=== PATIENT | male | born 1965 | race Caucasian/White ===

== ENCOUNTER 2020-01-28 01:27 | Outpatient (CLI) | payer OTHER, SELFPAY ==
[2020-01-28 19:16] LABS: SARS-CoV-2 RNA PCR Negative
== END 2020-01-28 01:28 | disposition home or self-care (01) ==
LOC: ANHCOVIDDT 01:28
PROVIDERS: PCP Family Medicine; Visit Provider Plastic Surgery
DX: Z01.812 Encounter for preprocedural laboratory examination (principal); Z11.59 Encounter for screening for other viral diseases
CPT/HCPCS: 87635; C9803; U0003

== ENCOUNTER 2020-01-30 02:12 | Day surgery (SDC) | payer OTHER, SELFPAY ==
[2020-01-27 13:46] VITALS: BMI 26.6
--- NOTE | 2020-01-29 20:12 | HP_ITS ---
DATE OF SERVICE: 01/30/2020 PREOPERATIVE DIAGNOSIS: Dupuytren's contracture in the left hand. HISTORY: The patient is 54. He is a patient of Dr. Juanjose Wilson. 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 He was evaluated on January 26 for Dupuytren's contracture which has revealed in both hands, worse on the left where he has an 80-degree flexion contracture of the PIP joint of the left 5th digit. The MP joint is not contracted. He has pitting and nodules in the palm. We have discussed surgery for this with the possibility of injury to nerves, blood vessels, or skin. He understands there will be potential for some delayed healing with some open wounds that may linger several weeks. He understands we may not be able to fully extend the PIP joint.There is a potential for digital nerve injury with numbness. Regardless of the surgery that we do, he is hopeful for some improvement. In addition to the above, he also complains of some symptoms consistent with compression neuropathy. He has a history of left carpal tunnel release a year and a half ago elsewhere, but he says his hand did not improve following that surgery. We have a nerve conduction test pending. ALLERGIES: HE HAS NO KNOWN ALLERGIES TO MEDICATION. MEDICATIONS: He takes no chronic medications. PAST SURGICAL HISTORY: Prior surgery has only been a carpal tunnel release in March 2019. REVIEW OF SYSTEMS: Also reveals gastric reflux, history of peeling sunburns. FAMILY HISTORY: Noncontributory. SOCIAL HISTORY: He says he is a smoker. The patient says his current smoking habit comprises approximately one-fourth of a pack per day. He lives in [place]. He works for [employer]. LABORATORY DATA: Recent labs that we have include a cholesterol of 269 which is elevated, triglycerides 186 also elevated, HDL 41 and an LDL calculated at 191, which is high. 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 PHYSICAL EXAMINATION: GENERAL: He is 5 feet 7 inches, weighs 170 pounds. He is in no acute distress. HEENT: Unremarkable. CHEST: Clear to auscultation. HEART: Regular rate and rhythm by palpation. ABDOMEN: Soft, nontender. EXTREMITIES: Exam appears normal with the exception of the palms as described above with sharp acute PIP joint contracture of the left little finger and pits and nodules in the palm. ASSESSMENT: Left small finger Dupuytren's contracture. PLAN: Left partial palmar fasciectomy under MAC anesthetic. D I MT: Obed MENDES
--- NOTE | 2020-01-30 07:11 | ECG_ITS ---
Measurements Intervals [place] Rate: 76 P: 65 NM: 178 QRS: 48 QRSD: 85 T: 45 QT: 378 QTc: 426 Interpretive Statements SINUS RHYTHM NORMAL ECG Electronically Signed On 01-30-2020 7:40:07 CDT by Julio C Padilla D.O.
[2020-01-30] MEDS: LACTATED RINGERS 1,000 ML 30 ML IV CONT ×2 (07:40→10:26)
[2020-01-30 07:42] VITALS: BP 131/70; PULSE 77; RESP 16; TEMP 36.4; O2SAT 97
--- NOTE | 2020-01-30 07:59 | WPDANESEPPF ---
Anes - Initial Pre Proc Eval Procedure: Operation Date: 01/30/20 08:15 Proposed Procedures p Left Partial Palmar Fasciectomy - Jeremiah Davis MD Date/Time: 01/30/20 07:59 Surgeon: Jeremiah Davis MD Pre Op Diagnosis: Left Dupuytren's Contracture Patient Data Age: 54 Gender: M Height: 5 ft 7 in Weight: 73.6 kg Last Vital Signs Temp 36.4 C 01/30/20 07:42 Pulse 77 01/30/20 07:42 Resp 16 01/30/20 07:42 BP 131/70 01/30/20 07:42 Pulse Ox 97 01/30/20 07:42 Allergies Allergy/AdvReac Type Severity Reaction Status Date / Time No Known Allergies Allergy Verified 01/30/20 07:06 Home Medications Medication Instructions Recorded Confirmed Type atorvastatin 80 mg PO HS 01/27/20 01/30/20 History Patient hx anesthesia problems: none Family hx anesthesia problems: none PMFSH Past Medical History Medical History Hyperlipidemia Tobacco abuse Family History Family History Mother Patient's mother is in good health Family history of osteoarthritis Family history of kidney disease Father Patient's father is in good health Sibling Patient's sister is in good health Patient's brother is in good health Social History Social History Smoking packs per day: 1 Smoking cigarettes per day: 20.0 Years smoked: 40 Smoking pack-years: 40.00 Smoking status: Current every day smoker Tobacco type: cigarettes Smoking end date: 07/24/10 Alcohol intake: current Drinks per week: 12 Spiritual care concerns: No Anes - Eval Final PreProcedure Day of Procedure 01/30/20 07:59 Patient weight: normal Heart: regular rate and rhythm Lungs: decreased breath sounds Airway: Mallampati scale class II Neurological: alert and oriented Last oral intake: >/= 8 hours ASA classification: III Emergent: no Anesthetic plan: proceed Anesthesia type and monitoring: general LMA and standard monitoring Informed Consent: The patient's anesthetic plan and its attendant risks and benefits were discussed with the patient/family/POA. Questions were solicited and answers provided to the satisfaction of the patient/family/POA.
--- NOTE | 2020-01-30 08:12 | WPDHPUPDATE1 ---
History and Physical Update Update Date/Time: 01/30/20 08:12 History and Physical has been reviewed, including an updated exam of the patient. There are NO changes in the patient's condition. Risks, benefits, and alternatives have been discussed and questions answered. Patient agrees to proceed with procedure.
[2020-01-30] MEDS: ceFAZolin SODIUM 1 GM VIAL 2 GM IV PUSH (08:34)
[2020-01-30] MEDS: LIDO 1%/EPINEPHRINE 1:100,000 20 ML VIAL 10 ML INFILTRATE (08:43)
[2020-01-30] MEDS: BACITRACIN OINTMENT 15 GM TUBE 1 APPLIC TOPICAL (08:44)
[2020-01-30 10:26] VITALS: BP 123/67; PULSE 82; RESP 16; O2SAT 93
[2020-01-30 10:45] VITALS: BP 122/65; PULSE 83; RESP 12
--- NOTE | 2020-01-30 10:48 | PM.OP ---
Procedure Note - Brief Procedure Note - Brief Date of procedure: 01/30/20 Pre-op diagnosis: Left Dupuytren's Contracture Post-op diagnosis: same Procedure performed: Partial palmar fasciectomy for Dupuytren's disease of the left hand and little finger Anesthesia: GISELL Surgeon: Jeremiah Davis MD Street Light Repairer Helper: Calista Barnes Estimated blood loss (mL): 5 Tourniquet time (min): 80 Drains: No Pathology: none sent Complications: No immediate complications Condition: stable Disposition: same day
[2020-01-30 11:15] VITALS: BP 135/73; PULSE 80; RESP 12
[2020-01-30 11:30] VITALS: BP 130/70; PULSE 82; RESP 14
--- NOTE | 2020-01-30 15:15 | PM.PROC ---
Procedure Note - Detailed Date of procedure: 01/30/20 Pre-op diagnosis: Left Dupuytren's Contracture Post-op diagnosis: same Procedure performed: Partial palmar fasciectomy of the left hand and little finger for Dupuytren's disease Description of procedure: In the holding area the hand patient's hand was marked for appropriate site. He was taken to the operating room where he was placed supine on the operating table. A time-out was held and confirmed. He was given IV sedation and the extremity was prepped and draped in the usual fashion. The patient had received 2 g of Ancef preop. The hand was carefully examined for placement of access incisions. There was minimal metacarpophalangeal joint flexion but an acute angle at the proximal interphalangeal joint on the little finger. There were cords in the palm and these extended toward the metacarpophalangeal joint of the ring finger. There was no significant ring finger contracture. Course were thick along the ulnar border of the little finger metacarpophalangeal joint. Markings were made for a transverse incision in the ulnar palm and a dog leg and midline palmar incision on the small finger. These areas were infiltrated with 1% lidocaine with epinephrine. The tourniquet was inflated to 250 mmHg. The transverse incision was made in the ulnar palm and the skin flaps carefully elevated fairly thinly in both directions from that. We were able to identify a thick palmar cord and that was dissected and removed. The finger was then opened down the midline as marked with a dog leg to the ulnar side. This allowed removal of the distal palmar cords which were quite thick. The skin flaps were carefully elevated on the finger. We did not encounter any spiral cords. The pretendinous cord however was extremely thick the neurovascular bundles were identified distally and dissection was carried proximally taking that mass off the flexor tendon sheath as we went. When that was removed the finger could lie in full extension. The ulnar side of the metacarpophalangeal joint was also freed of all contracted tissue . The wound was irrigated copiously with saline. The tourniquet was released and then pressure was held for a couple of minutes. The wound was closed with the use of a single Z-plasty near the proximal interphalangeal joint of the small finger. All suturing was done with a 5 0 nylon suture on PS 2 needle. A bulky gauze bandage was applied with no splint. No additional anesthetic was infiltrated. The patient is discharged with instructions in wound care and follow-up has a prescription for hydrocodone/APAP . Surgeon: Jeremiah Davis MD
== END 2020-01-30 11:37 | disposition home or self-care (01) ==
PROVIDERS: PCP Family Medicine; Visit Provider Plastic Surgery
PROC: (CPT 26045; principal; 2020-01-30 08:15)
DX: M72.0 Palmar fascial fibromatosis [Dupuytren] (principal); E78.5 Hyperlipidemia, unspecified; F17.210 Nicotine dependence, cigarettes, uncomplicated
CPT/HCPCS: 26123; 93005; A9270; J0131; J0690; J2250; J2405; J2704; J3010; J7120

== ENCOUNTER 2020-03-19 10:10 | Outpatient (CLI) | payer OTHER, SELFPAY ==
--- NOTE | 2020-03-19 11:00 | NEURO_ITS ---
Patient Number: [id number] Impression: # Complains of tingling of left hand. # Status post dupuytren?s contracture surgery. # Normal nerve conduction study. # Needle/EMG exam not requested. # Clinical correlation recommended. Nerve Conduction Studies Anti Sensory Summary Table Stim Site NR Peak (ms) P-T Amp (?V) Site1 Site2 Delta-P (ms) Dist (cm) Tre (m/s) Left Median Anti Sensory (2-3nd Digit) Wrist 2.7 50.0 Wrist 2-3nd Digit 2.7 14.0 52 Wrist 2.8 26.0 Wrist 2-3nd Digit 2.7 14.0 52 Left Radial Anti Sensory (Base 1st Digit) Wrist 1.7 44.4 Wrist Base 1st Digit 1.7 0.0 Left Ulnar Anti Sensory (5th Digit) Wrist 2.5 28.0 Wrist 5th Digit 2.5 14.0 56 Motor Summary Table Stim Site NR Onset (ms) O-P Amp (mV) Site1 Site2 Delta-0 (ms) Dist (cm) Tre (m/s) Left Median Motor (Abd Poll Brev) Wrist 3.1 1.8 Elbow Wrist 5.0 27.0 54 Elbow 8.1 4.6 Left Ulnar Motor (Abd Dig Minimi) Wrist 2.4 5.6 A Elbow Wrist 4.7 28.0 60 A Elbow 7.1 4.8 B Elbow Wrist 11.4 0.0 B Elbow 13.8 0.0 F Wave Studies NR F-Lat (ms) L-R F-Lat (ms) Left Median (Mrkrs) (Abd Poll Brev) 27.27 Left Ulnar (Mrkrs) (Abd Dig Min) 27.95 MTDD
== END 2020-03-19 10:11 | disposition home or self-care (01) ==
PROVIDERS: PCP Family Medicine; Visit Provider Plastic Surgery
DX: R20.2 Paresthesia of skin (principal); Z98.890 Other specified postprocedural states
CPT/HCPCS: 95909

== ENCOUNTER → 2020-05-01 10:23 | Outpatient (CLI) | payer OTHER, SELFPAY ==
--- NOTE | ~2020-05-01 | XR_ITS ---
XR cervical spine 4-5V DATE: 05/01/2020 10:42 INDICATION: Neck pain, radiculopathy TECHNIQUE: Standing AP, open-mouth, odontoid, lateral and swimmer views COMPARISON: None FINDINGS: C1 and C2 are normally aligned and the odontoid process is intact. No fracture or dislocati on or locked facet or prevertebral soft tissue swelling. There is moderately severe loss of disc space height and moderate spurring at C5-6, consistent with d egenerative disc disease. There is prominent uncovertebral joint spurring at C5-6 as well. IMPRESSION: Moderately severe degenerative disc disease and prominent uncovertebral joint spurring at C5-6 Reviewed, dictated and finalized at location A. IMPRESSION: Moderately severe degenerative disc disease and prominent uncoverte bral joint spurring at C5-6
== END ==
PROVIDERS: Visit Provider Plastic Surgery
DX: M47.22 Other spondylosis with radiculopathy, cervical region (principal); M50.322 Other cervical disc degeneration at C5-C6 level
CPT/HCPCS: 72050

== ENCOUNTER 2020-05-07 07:30 | Outpatient (RCR) | payer OTHER, SELFPAY ==
--- NOTE | 2020-04-08 09:31 | OTOPEVAL ---
OCCUPATIONAL THERAPY EVALUATION REPORT 04/08/2020 Thank you for referring Grace Mae to [facility].? The patient is scheduled to be seen for therapy? 2x/week for 4 weeks. Please review, sign, date and return this plan of care CHRISTIANO. I agree with and certify that the following plan of care is medically necessary. Referring Physician Date Referring Provider: Jeremiah Davis MD OT Evaluation Outpatient Past Medical History Neurological History Hx Neurological Disorders No Significant History Cardiovascular History Hx Hypercholesterolemia Yes Respiratory History Hx Respiratory Disorders No Significant History Gastrointestinal History Hx Gastrointestinal Disorders No Significant History Genitourinary History Hx Genitourinary Disorders No Significant History Musculoskeletal History Hx Other Musculoskeletal Disorders Yes: LT CTR, LT DUPUYTREN'S CONTRACTURE Hematological History Hx Hematological Disorders No Significant History Endocrine History Hx Endocrine Disorders No Significant History HEENT History Hx HEENT Disorders No Significant History Integumentary History Hx Skin Disorders No Significant History Reproductive History Hx Reproductive Disorders No Significant History Psychosocial History Hx Psychiatric Disorders No Significant History Pain History History of Any Previous or Ongoing No Significant History Instance of Pain Anesthesia History Hx Anesthesia Reactions No Significant History Evaluation Information Problem Diagnosis s/p Dupuytren's contracture release with partial fasciectomy Onset 01/30/20 Subjective Information Patient reports having scar Query Text:As Reported By Patient/ tissue on the palm of his left Family hand and palmar surface of the pinky which is sensitive and restricting is ability to make a fist. 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 He states work tasks are difficult and he is driving with the right hand only. Using the left hand for work tasks is still guarded. Pain Assessment Timing of Pain Assessment Timing of Pain Assessment Assessment Pain Scale Pain Scale Used Numeric (1 - 10) Self Report Pain Assessment Left Hand(s) Reported Pain Level 0
--- NOTE | 2020-05-04 08:14 | PCOTNOTE ---
Pt called and canceled 8:00am OT appointment, will schedule new appointment
--- NOTE | 2020-05-07 08:06 | OTOPEVAL ---
OCCUPATIONAL THERAPY RE-EVALUATION AND D/C 05/07/2020 Thank you for referring Grace Mae to [facility] [place].? The patient has made some progress with AROM of the left hand. He continues to have restrictions due to strength and hypersensitivity, however he reports he will continue to work on these with his home exercises. Discharging today with patient independent with HEP. Please review, sign, date and return this D/C CHRISTIANO. I agree with and certify that the following plan of care is medically necessary. Referring Physician Date Admitting Provider: Attending Provider: Jeremiah Davis MD Referring Provider: *OT Outpatient Re-Evaluation Evaluation Information Problem Diagnosis s/p Dupuytren's contracture release with partial fasciectomy Onset 01/30/20 Additional Evaluation Detail Grace has been participating in outpatient OT since and has attended 7 treatment sessions. Treatments have been focusing on the use of modalities, scar mobilization, AROM/PROM, and strengthening to facilitate optimal functional use of the left hand. Subjective Information Patient reports that since Query Text:As Reported By Patient/ beginning therapy his pain has Family reduced significantly. He states No matter what I do, when I wake up the next morning, its the same. He feels as though the soft tissue mass in his palm is restricting his ability to fully make a fist. He states that therapy has helped, but he is ready to be discharged to do his HEP on his own. He also notes that he follows up with MD tomorrow. Pain Assessment Timing of Pain Assessment Timing of Pain Assessment Re-assessment Pain Scale Pain Scale Used Numeric (1 - 10) Self Report Pain Assessment Left Hand(s) Reported Pain Level 3 Pain Description Aching,Dull Lowest Pain Intensity 3 Greatest Pain Intensity 3 Pain Score Pain Score 3: Self Report Upper Extremity Range of Motion Finger Range of Motion Left Little Finger MCP Joint Flexion - Active 80 Little Finger PIP Joint Flexion - Active 85 Little Finger PIP Joint Extension - -25 Active Little Finger DIP Joint Flexion - Active 75 Little Finger DIP Joint Extension
--- NOTE | 2020-08-18 12:45 | PCOTNOTE ---
Forgot to charge paraffin bath procedure on 04/27/2020, billing office is notified.
== END 2020-05-07 10:39 | disposition home or self-care (01) ==
LOC: ANHOT 07:30
PROVIDERS: PCP Family Medicine; Visit Provider Plastic Surgery
DX: Z48.89 Encounter for other specified surgical aftercare (principal)
CPT/HCPCS: 97018; 97035; 97110; 97140; 97165

== ENCOUNTER 2021-03-12 13:37 | Outpatient (CLI) | payer OTHER, SELFPAY ==
--- NOTE | 2021-03-12 13:47 | ECG_ITS ---
Measurements Intervals [place] Rate: 92 P: 59 TN: 160 QRS: 52 QRSD: 85 T: 54 QT: 349 QTc: 433 Interpretive Statements SINUS RHYTHM NORMAL ECG Electronically Signed On 03-12-2021 14:00:06 CDT by Julio C Padilla D.O.
== END 2021-03-12 13:38 | disposition home or self-care (01) ==
LOC: ANHCARD 13:40
PROVIDERS: Visit Provider Anesthesiology
DX: Z01.810 Encounter for preprocedural cardiovascular examination (principal); E78.5 Hyperlipidemia, unspecified
CPT/HCPCS: 93005

== ENCOUNTER → 2021-03-13 01:34 | Outpatient (CLI) | payer OTHER, SELFPAY ==
[2021-03-14 01:36] LABS: SARS-CoV-2 RNA PCR Negative
== END ==
PROVIDERS: Visit Provider Orthopaedic Surgery
DX: Z01.812 Encounter for preprocedural laboratory examination (principal); Z20.822 Contact with and (suspected) exposure to COVID-19
CPT/HCPCS: C9803; U0003; U0005

== ENCOUNTER 2021-03-17 01:10 | Day surgery (SDC) | payer OTHER, SELFPAY ==
[2021-03-12 13:41] VITALS: BMI 26.6
--- NOTE | 2021-03-15 13:04 | PM.IMHP ---
H&P: HPI History of Present Illness Date/Time: 03/15/21 13:04 the patient is a 55-year-old male who presents with left shoulder pain ongoing and chronic in nature. He reports weakness and pain with overhead motion. The pain radiates into his upper arm is even present at rest if he has a busy day. The patient has limitation of his daily activities due to his chronic and worsening left shoulder pain. Patient had previously been treated for adhesive capsulitis he made good strides with motion with physical therapy and cortisone. He has recovered his motion however he continues to have pain and weakness with almost any activity. An MRI scan of the left shoulder now reveals a fairly large rotator cuff tendon tear the MRI scan shows AC joint hypertrophy with type 2 acromion and moderate subacromial outlet narrowing. The patient also has a 2.2 cm full-thickness tear of the supraspinatus tendon there is supraspinatus muscle atrophy as well. This infraspinatus and subscapularis tendons appear to be intact. Bicipital labral complex is also grossly intact. at this point the patient is aware the above findings, he has failed conservative measures. The patient is aware has a large rotator cuff tendon tear which could have advanced since his MRI scan done at the end of December if it has become significantly larger repair may not be possible. Patient has discussed further treatment options in detail with Dr. Nelson he would now like to proceed with surgical intervention for his left shoulder. Chief Complaint: Left shoulder pain due to AC joint arthrosis, impingement, large rotator cuff tendon tear Review of Systems Review of Systems: All systems reviewed & are unremarkable except as noted in HPI and below PMFSH Past Medical History Medical History Hyperlipidemia Tobacco abuse Family History Family History Mother Patient's mother is in good health Family history of osteoarthritis Family history of kidney disease Father Patient's father is in good health Sibling Patient's sister is in good health Patient's brother is in good health Social History Social History Smoking packs per day: 1 Smoking cigarettes per day: 20.0 Years smoked: 41 Smoking pack-years: 41.00 Smoking status: Current every day smoker Tobacco type: cigarettes Second hand tobacco smoke exposure: Yes Smoking end date: 07/24/10 Alcohol intake: current Drinks per week: 12 Substance use: never Substance use type: does not use Spiritual care concerns: No Meds Home Medications and Allergies Home Medications Medication Instructions Recorded Confirmed Type atorvastatin 80 mg PO HS 01/27/20 03/12/21 History omeprazole 20 mg DAILY 03/12/21 03/12/21 History Allergies Allergy/AdvReac Type Severity Reaction Status Date / Time No Known Allergies Allergy Verified 03/12/21 13:21 Exam Narrative: On exam the patient is noted be a well-developed well-nourished male no acute distress alert oriented x3. Normal mood and affect. Hearing and vision are intact. Respiratory is good no distress. Pulse regular rate rhythm. Abdomen benign. Extremities showed the patient's left shoulder to be painful with manipulation and range of motion. The patient has full active and passive motion now but pain with extremes of motion. He has a positive impingement sign. Rotator cuff strength testing reproduces his symptoms, the patient is also noted have pain with external rotation and abduction of the left shoulder. Shoulder joint is otherwise stable. The patient has full painless neck motion. Neurovascular is intact. Skin is intact. Central nervous system exam within normal limits. MRI scan is as above. Assessment and Plan Additional Plan By MRI and exam the patient is noted to have impingement w
--- NOTE | 2021-03-16 13:52 | WPDANESEPPF ---
Anes - Initial Pre Proc Eval Procedure: Operation Date: 03/17/21 07:30 Proposed Procedures p Left Shoulder Arthroscopy, Acromioplasty, Open Distal Clavicle Excision, Rotator Cuff Repair, Proceed as Indicated - Marco Antonio Nelson MD Date/Time: 03/16/21 13:52 Surgeon: Marco Antonio Nelson MD Pre Op Diagnosis: left rotator cuff tear Patient Data Age: 55 Gender: M Height: 1.7 m Weight: 77.27 kg Allergies Allergy/AdvReac Type Severity Reaction Status Date / Time No Known Allergies Allergy Verified 03/17/21 06:47 Home Medications Medication Instructions Recorded Confirmed Type atorvastatin 80 mg PO HS 01/27/20 03/12/21 History omeprazole 20 mg DAILY 03/12/21 03/12/21 History ECG: Date of Service: 03/12/21 Procedure(s): CA 12 lead EKG Accession Number(s): [id number] cc: ~ Measurements Intervals [place] Rate: 92 P: 59 MS: 160 QRS: 52 QRSD: 85 T: 54 QT: 349 QTc: 433 Interpretive Statements SINUS RHYTHM NORMAL ECG Electronically Signed On 03-12-2021 14:00:06 CDT by Julio C Padilla D.O. Patient hx anesthesia problems: none Family hx anesthesia problems: none PMFSH Past Medical History Medical History (Updated 03/16/21 @ 13:52 by Kamran Gonsales MD) Hyperlipidemia Overweight (BMI 25.0-29.9) Tobacco abuse Family History Family History Mother Patient's mother is in good health Family history of osteoarthritis Family history of kidney disease Father Patient's father is in good health Sibling Patient's sister is in good health Patient's brother is in good health Social History Social History Smoking packs per day: 1 Smoking cigarettes per day: 20.0 Years smoked: 41 Smoking pack-years: 41.00 Smoking status: Current every day smoker Tobacco type: cigarettes Second hand tobacco smoke exposure: Yes Smoking end date: 07/24/10 Alcohol intake: current Drinks per week: 12 Substance use: never Substance use type: does not use Living arrangements: with family Spiritual care concerns: No Anes - Eval Final PreProcedure Day of Procedure 03/16/21 13:52 Patient weight: overweight Heart: regular rate and rhythm Lungs: clear to auscultation and normal air movement Airway: Mallampati scale class II Neurological: alert and oriented Last oral intake: >/= 8 hours ASA classification: II Emergent: no Anesthetic plan: proceed Anesthesia type and monitoring: general ETT Informed Consent: The patient's anesthetic plan and its attendant risks and benefits were discussed with the patient/family/POA. Questions were solicited and answers provided to the satisfaction of the patient/family/POA.
[2021-03-17] VITALS (8 sets, daily range): BP systolic 131–142; BP diastolic 65–88; PULSE 92–107; RESP 14–19; TEMP 36.2–36.9; O2SAT 95–100; BMI 27.9
[2021-03-17] MEDS: LACTATED RINGERS 1,000 ML 30 ML IV CONT (07:00)
[2021-03-17] MEDS: ACETAMINOPHEN 500 MG TABLET 1000 MG PO (07:04)
[2021-03-17] MEDS: KETOROLAC 15 MG/ML VIAL (*BKC) IV PUSH (07:05)
--- NOTE | 2021-03-17 07:10 | WPDANESPNB ---
Anes - Peripheral Nerve Block Date/Time: 03/17/21 07:10 I have discussed with the patient/family/POA the placement of a peripheral nerve block for post-operative pain management, including associated risks, benefits, complications, and side effects. Alternative methods of post-operative analgesia were detailed. Questions were solicited and answers provided to the satisfaction of the patient/family/POA. Time-Out: A pre-procedural Time-Out was completed immediately before starting the procedure and confirmed: Patient Identification, Site, Procedure, Patient Position and the Availability of Requisite Equipment. Clinical Indications: Acute post-operative pain management requested by the operative surgeon. Nerve Block Insertion Note Anes-nerve block: supraclavicular left Patient position: supine Skin prep: chlorhexidine Needle: 22 gauge, stimulating, insulated echogenic needle. Needle length: 80 mm Technique: ultrasound (in plane) Injectate: bupivacaine 0.5% with epi 5 mcg/ml (20cc) Observations: tolerated well Complications: none Procedure start time:: 725 Procedure end time:: 730
--- NOTE | 2021-03-17 07:12 | WPDHPUPDATE1 ---
History and Physical Update Update Date/Time: 03/17/21 07:12 History and Physical has been reviewed, including an updated exam of the patient. There are NO changes in the patient's condition. Risks, benefits, and alternatives have been discussed and questions answered. Patient agrees to proceed with procedure.
[2021-03-17] MEDS: ceFAZolin 2 GM/D5W 50 ML 2 GM/50 ML BAG IVPB (07:37)
[2021-03-17] MEDS: LIDO 1%/EPINEPHRINE 1:100,000 10 ML VIAL 30 ML INFILTRATE (08:20)
--- NOTE | 2021-03-17 08:44 | P.OP_ITS ---
Procedure Note - Detailed Date of Procedure 03/17/21 Pre-op Diagnosis left rotator cuff tear Post-op Diagnosis same Procedure Performed Rotator cuff repair, distal clavicle excision Surgeon Marco Antonio Nelson MD Flight Operations Manager Trevor Jaramillo Anesthesia general Description of Procedure Arthroscopy shoulder with acromioplasty open distal clavicle exicision. Rotator cuff debridement and repair. Estimated Blood Loss 50 Drains No Packing No Pathology none sent Complications No immediate complications Condition stable Disposition PACU
--- NOTE | 2021-03-17 08:47 | W.PM.PROC2 ---
Procedure Note - Detailed Date of Procedure 03/17/21 Pre-op Diagnosis left rotator cuff tear Post-op Diagnosis same Procedure Performed [side] carpal tunnel release Surgeon Marco Antonio Nelson MD Anesthesia MAC Description of Procedure After sterile prep and drape, I injected the area of intended incision with 10ml of 1% lidocaine. A longitudinal incision was made in line with the ulnar boarder of the third finger. Disection carried down to the fascia, the fascia split and the carpal ligament identified. The carpal ligament was released and the flexor retinaculum was released as well. The nerve was noted to be red purple in color and in continuity. The wound was irrigated, hemostatis was obtained and closed with 3-0 prolene. Estimated Blood Loss 50 Drains No Packing No Pathology none sent Complications No immediate complications Condition stable Disposition same day
--- NOTE | 2021-03-17 08:48 | P.OP_ITS ---
Procedure Note - Detailed Date of Procedure 03/17/21 Pre-op Diagnosis left rotator cuff tear Post-op Diagnosis same Procedure Performed Rotator cuff repair, distal clavicle excision Surgeon Marco Antonio Nelson MD [employer] Director Trevor Jaramillo Anesthesia general Description of Procedure Arthroscopy shoulder with acromioplasty open distal clavicle exicision. Rotator cuff debridement and repair. Patient brought to operating room 7. General anesthetic administered placed on the operating table and sterilely prepped and draped in usual manner supra standard arthroscopic portal was made lateral and posterior and arthroscopy begun he had fraying of the labrum but not bad massive tear was seen biceps tendon intact I went subacromial space again the acromioplasty and this was performed with shaver I then longitudinal incision made from the AC joint distally dissection carried down the fascia distal clavicle excision performed the edges beveled and then proceeded over the tip of the acromion and rotator cuff tear was found fairly significant tear quarter-sized most supraspinatus and subscapularis is the greater tuberosity burred mm the supraspinatus the subscapularis hole or tied down with 2. Ethibond to close this gave a nice repair this point full motion was achieved distal clavicle gently rest then closed with the deltoid repaired to itself the acromion trapezius skin was closed with 2-0 Vicryl and payal I Estimated Blood Loss 50 Drains No Packing No Pathology none sent Complications No immediate complications Condition stable Disposition PACU
--- NOTE | 2021-03-17 10:32 | SUR.PHASEII ---
RN contacted Dr. Nelson's office for clarification on discharge instructions.
== END 2021-03-17 10:53 | disposition home or self-care (01) ==
PROVIDERS: Visit Provider Orthopaedic Surgery
PROC: (CPT 29805; principal; 2021-03-17 07:30)
DX: M75.122 Complete rotator cuff tear or rupture of left shoulder, not specified as traumatic (principal); M75.42 Impingement syndrome of left shoulder; M19.012 Primary osteoarthritis, left shoulder; M24.112 Other articular cartilage disorders, left shoulder; G89.18 Other acute postprocedural pain; E78.5 Hyperlipidemia, unspecified; E66.3 Overweight; Z68.26 Body mass index [BMI] 26.0-26.9, adult; F17.210 Nicotine dependence, cigarettes, uncomplicated; Z79.899 Other long term (current) drug therapy
CPT/HCPCS: 64415; 23412; 23120; 93005; A4565; A9270; C9803; J0330; J0690; J1100; J1885; J2250; J2405; J2704; J2710; J3010; J7120; U0003; U0005

== ENCOUNTER 2023-12-13 11:11 | Outpatient (CLI) | payer OTHER, SELFPAY ==
[2023-12-13 11:57] LABS: Basophils Absolute Auto 0.1 K/mm3 (0.0-0.1); Basophils Percent Auto 0.9 % (0.2-1.2); Eosinophils Absolute Auto 0.2 K/mm3 (0-0.3); Eosinophils Percent Auto 3.1 % (0-4.4); Hematocrit 49.4 % (42.0-52.0); Hemoglobin 16.4 g/dL (14.0-18.0); Immature Granulocyte Absolute 0.04 K/mm3 (0.00-0.031); Immature Granulocyte Percent A 0.5 % (0-0.5); Lymphocytes Absolute Auto 2.07 K/mm3 (0.9-3.2); Lymphocytes Percent Auto 27.8 % (18.3-44.2); Mean Corpuscular HGB Conc 33.2 g/dl (32-36); Mean Corpuscular Hemoglobin 30.5 pg (26-34); Mean Platelet Volume 10.7 fl (7.4-10.4); Monocytes Absolute Auto 0.7 K/mm3 (0.1-0.6); Monocytes Percent Auto 9.8 % (2.6-8.5); Neutrophils Absolute Auto 4.3 K/mm3 (1.3-6.7); Neutrophils Percent Auto 57.9 % (45.5-73.1); Platelet Count Result 174 k/mm3 (150-375); Red Blood Count 5.37 M/mm3 (4.6-6.20); Red Cell Distribution Width 14.2 % (11.5-14.5); White Blood Count 7.5 K/mm3 (4.5-10.0)
[2023-12-13 12:09] LABS: Alanine Aminotransferase 26 U/L (6-50); Albumin Level 4.6 g/dL (3.5-5.1); Alkaline Phosphatase 61 U/L (38-126); Anion Gap 8 mmol/L (4-12); Aspartate Amino Transferase 21 U/L (17-59); Bilirubin,Total 0.6 mg/dL (0.2-1.3); Blood Urea Nitrogen 13 mg/dL (9-20); Calcium 9.3 mg/dL (8.4-10.2); Carbon Dioxide 24 mmol/L (22-30); Chloride 109 mmol/L (98-107); Cholesterol 260 mg/dL (0-200); Estimated Glomerular Filt Rate > 60; Glucose 99 mg/dL (65-110); HDL Direct 45 mg/dL; Potassium 4.9 mmol/L (3.4-5.0); Sodium 141 mmol/L (137-145); Triglycerides 176 mg/dL (<150)
[2023-12-13 12:20] LABS: LDL Cholesterol Direct 170 mg/dL
[2023-12-13 12:35] LABS: Prostate Specific Antigen 1.3 ng/mL (< OR = 4.0)
== END 2023-12-13 11:12 | disposition home or self-care (01) ==
LOC: ANHLAB 11:13
PROVIDERS: PCP Nurse Practitioner Family; Visit Provider Nurse Practitioner Family
DX: Z12.5 Encounter for screening for malignant neoplasm of prostate (principal); E78.5 Hyperlipidemia, unspecified; I10 Essential (primary) hypertension
CPT/HCPCS: 36415; 80053; 80061; 84153; 84443; 85025; G0103

== ENCOUNTER 2024-01-30 09:09 | Outpatient (CLI) | payer OTHER, SELFPAY ==
--- NOTE | 2024-01-30 11:30 | NEURO_ITS ---
Impression: # Complains of flexion contracture of fingers.. Non-Diabetic. # Left ulnar neuropathy across the elbow. # No Carpal Tunnel Syndrome. # Normal needle/EMG exam. Nerve Conduction Studies Anti Sensory Summary Table Stim Site NR Peak (ms) P-T Amp (?V) Site1 Site2 Delta-P (ms) Dist (cm) Tre (m/s) Left Median Anti Sensory (2-3nd Digit) Wrist 2.8 33.7 Wrist 2-3nd Digit 2.8 14.0 50 Wrist 2.9 43.9 Wrist 2-3nd Digit 2.8 14.0 50 Right Median Anti Sensory (2-3nd Digit) Wrist 2.8 66.0 Wrist 2-3nd Digit 2.8 14.0 50 Wrist 2.7 75.9 Wrist 2-3nd Digit 2.8 14.0 50 Left Radial Anti Sensory (Base 1st Digit) Wrist 1.8 22.9 Wrist Base 1st Digit 1.8 0.0 Right Radial Anti Sensory (Base 1st Digit) Wrist 2.4 49.7 Wrist Base 1st Digit 2.4 0.0 Left Ulnar Anti Sensory (5th Digit) Wrist 2.6 43.2 Wrist 5th Digit 2.6 14.0 54 Right Ulnar Anti Sensory (5th Digit) Wrist 2.4 34.5 Wrist 5th Digit 2.4 14.0 58 Motor Summary Table Stim Site NR Onset (ms) O-P Amp (mV) Site1 Site2 Delta-0 (ms) Dist (cm) Tre (m/s) Left Median Motor (Abd Poll Brev) Wrist 3.2 2.7 Elbow Wrist 5.1 29.0 57 Elbow 8.3 6.9 Right Median Motor (Abd Poll Brev) Wrist 2.8 2.7 Elbow Wrist 5.2 29.0 56 Elbow 8.0 4.4 Left Ulnar Motor (Abd Dig Minimi) Wrist 2.2 6.6 A Elbow Wrist 5.5 27.0 49 A Elbow 7.7 6.4 B Elbow Wrist 3.7 21.0 57 B Elbow 5.9 6.2 Right Ulnar Motor (Abd Dig Minimi) Wrist 2.6 7.7 A Elbow Wrist 4.9 28.0 57 A Elbow 7.5 7.9 F Wave Studies NR F-Lat (ms) L-R F-Lat (ms) Left Median (Mrkrs) (Abd Poll Brev) 27.79 0.12 Right Median (Mrkrs) (Abd Poll Brev) 27.92 0.12 Left Ulnar (Mrkrs) (Abd Dig Min) 28.30 0.45 Right Ulnar (Mrkrs) (Abd Dig Min) 27.85 0.45 EMG Side Muscle Nerve Root Ins Act Fibs Amp Dur Recrt Comment Right 1stDorInt Ulnar C8-T1 Nml Nml Nml Nml Nml Right Ext Indicis Radial (Post Int) C7-8 Nml Nml Nml Nml Nml Right Ext Digitorum Radial (Post Int) C7-8 Nml Nml Nml Nml Nml Right BrachioRad Radial C5-6 Nml Nml Nml Nml Nml Right PronatorTeres Median C6-7 Nml Nml Nml Nml Nml Right Abd Poll Brev Median C8-T1 Nml Nml Nml Nml Nml Right ABD Dig Min Ulnar C8-T1 Nml Nml Nml Nml Nml Left 1stDorInt Ulnar C8-T1 Nml Nml Nml Nml Nml Left Ext Indicis Radial (Post Int) C7-8 Nml Nml Nml Nml Nml Left Ext Digitorum Radial (Post Int) C7-8 Nml Nml Nml Nml Nml Left BrachioRad Radial C5-6 Nml Nml Nml Nml Nml Left PronatorTeres Median C6-7 Nml Nml Nml Nml Nml Left Abd Poll Brev Median C8-T1 Nml Nml Nml Nml Nml Left ABD Dig Min Ulnar C8-T1 Nml Nml Nml Nml Nml Right Biceps Musculocut C5-6 Nml Nml Nml Nml Nml Right Triceps Radial C6-7-8 Nml Nml Nml Nml Nml Right Deltoid Axillary C5-6 Nml Nml Nml Nml Nml Left Biceps Musculocut C5-6 Nml Nml Nml Nml Nml Left Triceps Radial C6-7-8 Nml Nml Nml Nml Nml Left Deltoid Axillary C5-6 Nml Nml Nml Nml Nml MTDD
== END 2024-01-30 09:10 | disposition home or self-care (01) ==
LOC: ANHNEURO 09:11
PROVIDERS: PCP Nurse Practitioner Family; Visit Provider Plastic Surgery
DX: G56.03 Carpal tunnel syndrome, bilateral upper limbs (principal); G56.22 Lesion of ulnar nerve, left upper limb
CPT/HCPCS: 95886; 95911

== ENCOUNTER 2024-03-07 05:53 | Day surgery (SDC) | payer OTHER, SELFPAY ==
[2024-02-28 10:08] VITALS: BMI 27.4
[2024-03-07 06:18] VITALS: BP 134/86; PULSE 77; RESP 18; TEMP 36.8; O2SAT 98; BMI 26.7
[2024-03-07] MEDS: LACTATED RINGERS 1,000 ML 150 ML IV CONT (06:31)
--- NOTE | 2024-03-07 07:00 | P.HPUP_ITS ---
History and Physical Update Update Date/Time: 03/07/24 07:00 Patient seen and examined in pre-operative holding area. No interval change in medical history or symptoms. Patient recalls previous discussion of benefits and alternatives to procedure. Continues to desire to proceed with right ring finger fasciectomy . Reviewed procedure, post-op expectations and risks including but not limited to bleeding, infection, injury to tendon/nerve/vessel, decreased hand function, stiffness, RSD, no change or worsening of symptoms, incomplete release, recurrence. I discussed the possible use of assistants and their participation in the case. Patient stated understanding and signed the c onsent form wishing to proceed.
--- NOTE | 2024-03-07 07:00 | W.PM.PROC2 ---
Procedure Note - Detailed Date of Procedure 03/07/24 Pre-op Diagnosis Duputrens Contracture Right ring Finger Post-op Diagnosis Same Procedure Performed right ring finger fasciectomy Surgeon Pily Gracia MD Supervisor Operations jonathan riley pa-c Anesthesia MAC Description of Procedure INFORMED CONSENT: The patient was seen and examined and marked in the pre-op area.? The patient signed the consent form. PROCEDURE IN DETAIL:The patient taken back to OR on the stretcher in supine position. Time out performed with anesthesia, surgeon and staff agreeing on patient's name site and surgery to be performed SCDs were placed on the lower extremities and inflated. A tourniquet was placed on {right} upper extremity and antibiotics given IV After anesthesia administered sedation I injected 6cc 1%lidoand 0.5% marcaine plain for digital block in the palm The?{right upper extremity}?was prepped and draped in sterile fashion the??{right upper extremity} was? exsanguinated with Esmarch bandage and tourniquet inflated to 250mmHg I proceeded with making an incision at the proximal origin of the palpable cord with a 15 blade scalpel through skin and dermis going distally to the proximal interphalangeal joint and going obliquely across the flexion creases. Starting proximally elevated skin flaps with the scalpel. I identified the cord near its origin and circumferentially dissected around it. I transected the cord. I proceeded with anterograde dissection and excision of this cord with a combination of Littler scissors and 15 blade scalpel. The neurovascular bundles were identified and protected throughout the procedure. I was able to achieve near release of the MP joint and near full release of the proximal interphalangeal joint as there was some residual joint stiffness and tendon tightness but no further cord was identified and the tightness was jusdged to be so minimal capsulotomy wasn't indicated. I irrigated with normal saline and closed skin with 4-0 chromic suture. A dressing of xeroform, 4x4, nancy, and an ulnar gutter splint with ring finger straight was applied for patient safety, security, and comfort and secured with an rebecca bandage after the tourniquet was let down noting the hand was warm and well perfused. The patient was then awaken from anesthesia and transferred to the recovery room in stable condition.? Complications - none EBL- 0cc Disposition - home in stable conditions jonathan riley pa-c was essential for positioning, retraction, closure and dressing placement [facility] Billing Surgery - Charge Forward: Surgery Billing ([id number] for jonathan)
--- NOTE | 2024-03-07 07:05 | WPDANESEPPF ---
Anes - Initial Pre Proc Eval Procedure: Operation Date: 03/07/24 07:30 Proposed Procedures p Right Middle Finger Fasciectomy - Pily Gracia MD Date/Time: 03/07/24 07:05 Surgeon: Pily Gracia MD Pre Op Diagnosis: Duputrens Contracture Right Middle Finger Patient Data Age: 58 Gender: M Height: 1.7 m Weight: 77.5 kg Last Vital Signs Temp 36.8 C 03/07/24 06:18 Pulse 77 03/07/24 06:18 Resp 18 03/07/24 06:18 BP 134/86 03/07/24 06:18 Pulse Ox 98 03/07/24 06:18 O2 Del Method Room Air 03/07/24 06:18 Allergies Allergy/AdvReac Type Severity Reaction Status Date / Time No Known Allergies Allergy Verified 03/07/24 06:10 Home Medications Medication Instructions Recorded Confirmed Type omeprazole 20 mg capsule,delayed 20 mg PO DAILY #90 caps 12/12/23 03/07/24 Rx release aspirin 81 mg tablet,delayed 81 mg PO DAILY #90 tabs 12/13/23 03/07/24 Rx release rosuvastatin 40 mg tablet 40 mg PO DAILY #90 tabs 12/13/23 03/07/24 Rx lisinopril 10 mg tablet 10 mg PO DAILY #90 tabs 01/09/24 03/07/24 Rx Patient hx anesthesia problems: none Family hx anesthesia problems: none Results Review: All pre-operative results and documents have been reviewed as part of the pre-operative evaluation. [facility] Past Medical History Medical History Hyperlipidemia Overweight (BMI 25.0-29.9) Rotator cuff rupture Tobacco abuse Surgical History Surgical History H/O repair of left rotator cuff 03/17/21 Dr Nelson Hx of hand surgery 01/30/20 Dr Roa- left partial palmar fasciectomy with 5th finger Family History Family History Mother Patient's mother is in good health Family history of osteoarthritis Family history of kidney disease Cancer Father Patient's father is in good health Hypertension Sibling Patient's sister is in good health Patient's brother is in good health Social History Social History Smoking packs per day: 1 Smoking cigarettes per day: 20.0 Years smoked: 40 Smoking pack-years: 40.00 Smoking status: Current every day smoker Tobacco type: cigarettes Second hand tobacco smoke exposure: Yes Smoking end date: 07/24/10 Alcohol intake: current Drinks per week: 6 Alcohol use details: Drinks beer Substance use: never Substance use type: does not use Do You Feel Safe in your Home?: Yes Lack of Transportation: No Lack of Food: Never True Current Housing: I Have Housing Concerned About Future Housing: No Difficulty Paying Gas/Electric Bills: No Difficulty Paying for Meds: No Currently Unemployed: No Education: Trade/Vocational Certificate Difficulty w/ Childcare or Family Care: No Living arrangements: alone Spiritual care concerns: No Anes - Eval Final PreProcedure Day of Procedure 03/07/24 07:05 Patient weight: overweight Heart: regular rate and rhythm Lungs: clear to auscultation Airway: Mallampati scale class III and special considerations poor opening Neurological: alert and oriented Last oral intake: >/= 8 hours ASA classification: III Emergent: no Anesthetic plan: proceed Anesthesia type and monitoring: general GIVS and standard monitoring Results Review: All pre-operative results and documents have been reviewed as part of the pre-operative evaluation. Informed Consent: The patient's anesthetic plan and its attendant risks and benefits were discussed with the patient/family/POA. Questions were solicited and answers provided to the satisfaction of the patient/family/POA.
[2024-03-07] MEDS: ceFAZolin SODIUM 2 GM/20 ML SW SYRINGE IV PUSH (07:25)
[2024-03-07] MEDS: BUPivacaine HCL 0.5% 10 ML AMP 3.5 ML INFILTRATE (07:29)
[2024-03-07] MEDS: LIDOCAINE HCL 1% LOCAL INJ 20 ML VIAL 3.5 ML INFILTRATE (07:29)
[2024-03-07 08:07] VITALS: BP 117/73; PULSE 75; RESP 16; O2SAT 97
--- NOTE | 2024-03-07 08:16 | WPDANESPN ---
Anes - Prog Note Post-Op Date/Time: 03/07/24 08:16 Cardiovascular status: normal Respiratory status: normal Airway patency: baseline Mental status: baseline Post-Op hydration status: normal Vital Signs: Last Vital Signs Temp 36.8 C 03/07/24 06:18 Pulse 77 03/07/24 06:18 Resp 18 03/07/24 06:18 BP 134/86 03/07/24 06:18 Pulse Ox 98 03/07/24 06:18 O2 Del Method Room Air 03/07/24 06:18 Pain Score (VAS): 0/10 Patient Feedback: Patient satisfied with anesthetic care.
[2024-03-07 08:35] VITALS: BP 120/77; PULSE 73; RESP 18; O2SAT 99
== END 2024-03-07 08:40 | disposition home or self-care (01) ==
PROVIDERS: PCP Nurse Practitioner Family; Visit Provider Plastic Surgery
PROC: (CPT 26045; principal; 2024-03-07 07:30)
DX: M72.0 Palmar fascial fibromatosis [Dupuytren] (principal)
CPT/HCPCS: 26123

== ENCOUNTER 2024-03-07 09:22 | Outpatient (NON) | payer OTHER, SELFPAY | END 2024-03-07 09:23 | disposition home or self-care (01) | LOC: ANHLAB 03-08 09:23 | PROVIDERS: PCP Nurse Practitioner Family; Visit Provider Internal Medicine Gastroenterology | DX: M72.0 Palmar fascial fibromatosis [Dupuytren] (principal) | CPT/HCPCS: 88304 ==

== ENCOUNTER 2024-05-16 07:00 | Outpatient (NON) | payer OTHER, SELFPAY | END 2024-05-16 07:01 | disposition home or self-care (01) | LOC: ANHLAB 05-17 07:35 | PROVIDERS: PCP Nurse Practitioner Family; Visit Provider Plastic Surgery | DX: M72.0 Palmar fascial fibromatosis [Dupuytren] (principal) | CPT/HCPCS: 88304 ==

== ENCOUNTER 2024-05-16 08:24 | Day surgery (SDC) | payer OTHER, SELFPAY ==
[2024-04-29 09:22] VITALS: BMI 27.5
--- NOTE | 2024-05-15 13:20 | WPDANESEPPF ---
Anes - Initial Pre Proc Eval Procedure: Operation Date: 05/16/24 10:45 Proposed Procedures p Dupuytren's Fasciectomy Left Middle and Ring Finger, Revision Dupuytren's Fasciectomy Left Small Finger - Pily Gracia MD Date/Time: 05/15/24 13:20 Surgeon: Pily Gracia MD Pre Op Diagnosis: Dupuytren's Contracture LT Middle, Ring and Small Patient Data Age: 58 Gender: M Height: 1.7 m Weight: 79.8 kg Allergies Allergy/AdvReac Type Severity Reaction Status Date / Time No Known Allergies Allergy Verified 05/16/24 09:26 Home Medications Medication Instructions Recorded Confirmed Type omeprazole 20 mg capsule,delayed 20 mg PO DAILY #90 caps 12/12/23 05/16/24 Rx release aspirin 81 mg tablet,delayed 81 mg PO DAILY #90 tabs 12/13/23 05/16/24 Rx release lisinopril 10 mg tablet 10 mg PO DAILY #90 tabs 01/09/24 05/16/24 Rx rosuvastatin 40 mg tablet 40 mg PO DAILY #90 tabs 03/17/24 05/16/24 Rx tramadol 50 mg tablet 50 mg PO Q6H PRN pain #12 tabs 05/16/24 Rx Patient hx anesthesia problems: none Family hx anesthesia problems: none Results Review: All pre-operative results and documents have been reviewed as part of the pre-operative evaluation. [facility] Past Medical History Medical History (Updated 05/15/24 @ 13:20 by Fermin Mak, ) Diverticulitis Hyperlipidemia Hypertension Overweight (BMI 25.0-29.9) Rotator cuff rupture Tobacco abuse Surgical History Surgical History H/O repair of left rotator cuff 03/17/21 Dr Nelson Hx of hand surgery 01/30/20 Dr Roa- left partial palmar fasciectomy with 5th finger Family History Family History Mother Patient's mother is in good health Family history of osteoarthritis Family history of kidney disease Cancer Father Patient's father is in good health Hypertension Sibling Patient's sister is in good health Patient's brother is in good health Social History Social History (Updated 05/06/24 @ 10:26 by Negin Boateng) Social History: Caffeine- coffee Smoking packs per day: 0.5 Smoking cigarettes per day: 10.0 Years smoked: 40 Smoking pack-years: 20.00 Smoking status: Current every day smoker Tobacco type: cigarettes Second hand tobacco smoke exposure: Yes Alcohol intake: current Drinks per week: 6 Alcohol use details: Drinks beer Substance use: never Substance use type: does not use Do You Feel Safe in your Home?: Yes Lack of Transportation: No Lack of Food: Never True Current Housing: I Have Housing Concerned About Future Housing: No Difficulty Paying Gas/Electric Bills: No Difficulty Paying for Meds: No Currently Unemployed: No Education: Trade/Vocational Certificate Difficulty w/ Childcare or Family Care: No Living arrangements: with family Spiritual care concerns: No Anes - Eval Final PreProcedure Day of Procedure 05/15/24 13:20 Patient weight: overweight Heart: regular rate and rhythm Lungs: clear to auscultation Airway: Mallampati scale class II Neurological: alert and oriented Last oral intake: >/= 8 hours ASA classification: III Emergent: no Anesthetic plan: proceed Anesthesia type and monitoring: general LMA and standard monitoring Results Review: All pre-operative results and documents have been reviewed as part of the pre-operative evaluation. Informed Consent: The patient's anesthetic plan and its attendant risks and benefits were discussed with the patient/family/POA. Questions were solicited and answers provided to the satisfaction of the patient/family/POA.
--- NOTE | 2024-05-16 06:56 | WPDHPUPDATE1 ---
History and Physical Update Update Date/Time: 05/16/24 06:56 Patient seen and examined in pre-operative holding area. No interval change in medical history or symptoms. Patient recalls previous discussion of benefits and alternatives to procedure. Continues to desire to proceed with left small, ring and middle finger fasciectomy and left cubital tunnel release. Reviewed procedure, post-op expectations and risks including but not limited to bleeding, infection, injury to tendon/nerve/vessel, decreased hand function, stiffness, RSD, no change or worsening of symptoms, recurrence, incomplete release. I discussed the possible use of assistants and their participation in the case. Patient stated understanding and signed the consent form wishing to proceed.
--- NOTE | 2024-05-16 06:57 | W.PM.PROC2 ---
Procedure Note - Detailed Date of Procedure 05/16/24 Pre-op Diagnosis Dupuytren's Contracture LT Middle, Ring and Small finger and left cubital tunnel syndrome Post-op Diagnosis Same Procedure Performed L MF, RF, SF fasciectomy and left CuTR and left small figner pipjoint capsulotomy Surgeon Pily Gracia MD College Specialist Jennifer Calvert PA-C Anesthesia MAC Description of Procedure INFORMED CONSENT:The patient was seen and examined and marked in the pre-op area.? The patient signed the consent form. PROCEDURE IN DETAIL: The patient taken back to OR on the stretcher in supine position. Time out performed with anesthesia, surgeon and staff agreeing on patient's name site and surgery to be performed SCDs were placed on the lower extremities and inflated A tourniquet was placed on {left} upper extremity and antibiotics given IV After anesthesia administered sedation I injected {8}cc 1%lido with epi and 0.5% marcaine plain at the elbow and 6cc 1%lido and 0.5%marcaine plain for the palm The?{left upper extremity}?was prepped and draped in sterile fashion the??{left upper extremity} was??exsanguinated with Esmarch bandage and tourniquet inflated to 250mmHg My attention 1st to the left small finger where Court incisions were made over the proximal and middle phalanx through skin and dermis and previous scar tissue from prior fasciectomy with a 15 blade scalpel. Littler scissors and scalpel were used to elevate skin flaps. I identified the cord resulting in PIP joint flexion which proceeded with circumferential dissection around this and excision. The neurovascular bundle was protected throughout the procedure though it was more difficult to identify on the ulnar aspect given the previous scar tissue. Distally a retrovascular cord was identified resulting in DIP joint contracture. This was circumferentially dissected and excised as well. After release of these cords and scar tissue there was still some contracture of the pipjoint. Spreading down to volar plate i identifed thickened tight scar tissue and possible fascia that was excised and capsulotomy performed. I was now able to achieve near full extension of the small finger joints. The neurovascular bundle was again protected. I irrigated with normal saline and closed with 4-0 chromic. It should be noted this procedure was exceptionally more difficult and time consuming given the history of previous surgical fasciectomy and distorted anatomy, scar tissue and need for further dissection Next I took my attention to the ring finger were proceeded with making Court incision over the cord around the PIP joint through skin and dermis with a 15 blade scalpel. Skin flaps were elevated. The cord was identified and excised. The neurovascular bundle was protected throughout this procedure. I was now able to achieve full extension of the PIP joint. Irrigated with normal saline and closed with 4-0 chromic. I now turned my attention to the middle finger where proceeded with making an incision from the cord in the palm distally going obliquely across the MP joint flexion crease through skin and dermis with 15 blade scalpel. Littler scissors and scalpel were used to elevate skin flaps. I identified the cord near its origin proximally and circumferentially dissected around it. The cord was transected proximally and I proceeded with anterograde dissection of the cord. The neurovascular bundles were identified and protected throughout the procedure. Was now able to achieve full extension of the middle finger MP and PIP joint. I irrigated with normal saline and closed with 4-0 chromic. I next proceeded with making a longitudinal incision between two heads for flexor carpi ulnaris at end of {left} cubital tunnel with 15 blade scalpel.? Littler scissors were used to spread down to FCU fascia.? An incision was made in FCU fascia and ulnar nerve identified exiting cubital tunnel.? I proceeded with complete retrogra
[2024-05-16 09:38] VITALS: BP 146/80; PULSE 88; RESP 18; TEMP 37; O2SAT 98
[2024-05-16] MEDS: LACTATED RINGERS 1,000 ML 30 ML IV CONT (09:38)
[2024-05-16] MEDS: ceFAZolin SODIUM 2 GM/20 ML SW SYRINGE IV PUSH (10:18)
[2024-05-16] MEDS: BUPivacaine HCL 0.5% 10 ML AMP INFILTRATE (11:11)
[2024-05-16] MEDS: LIDOCAINE HCL 1% LOCAL INJ 20 ML VIAL 10 ML INFILTRATE (11:11)
[2024-05-16 11:24] VITALS: BP 124/75; PULSE 88; RESP 18; O2SAT 100
[2024-05-16 11:30] VITALS: O2SAT 97
[2024-05-16 11:50] VITALS: BP 146/80; PULSE 80; RESP 18; O2SAT 98
[2024-05-16 12:10] VITALS: BP 150/78; PULSE 79; RESP 18; O2SAT 99
--- NOTE | 2024-05-16 12:43 | WPDANESPN ---
Anes - Prog Note Post-Op Date/Time: 05/16/24 12:43 Cardiovascular status: normal Respiratory status: normal Airway patency: baseline Mental status: baseline Post-Op hydration status: normal Vital Signs: Last Vital Signs Temp 37.0 C 05/16/24 09:38 Pulse 79 05/16/24 12:10 Resp 18 05/16/24 12:10 BP 150/78 H 05/16/24 12:10 Pulse Ox 99 05/16/24 12:10 O2 Del Method Room Air 05/16/24 12:10 O2 Flow Rate 6 05/16/24 11:24 Pain Score (VAS): 1 I/O: Intake & Output 05/15/24 05/16/24 05/16/24 23:59 07:59 15:59 Intake Total 100 Balance 100 Post-procedural complaints: none Patient Feedback: Patient satisfied with anesthetic care. Other Findings: Patient vital signs back to baseline. Patient denies nausea and vomiting. Patient's pain under control. Patient OK for discharge.
== END 2024-05-16 12:18 | disposition home or self-care (01) ==
PROVIDERS: PCP Nurse Practitioner Family; Visit Provider Plastic Surgery
PROC: (CPT 26045; principal; 2024-05-16 10:45)
PROC: (CPT 64718; 2024-05-16 10:45)
DX: M72.0 Palmar fascial fibromatosis [Dupuytren] (principal); G56.22 Lesion of ulnar nerve, left upper limb
CPT/HCPCS: 26123; 26125 ×2; 64718